=== PATIENT | female | born 1945 | race Caucasian/White ===

== ENCOUNTER 2016-06-23 07:41 | Day surgery (SDC) | payer MEDICARE, BC ==
[~2016-06-23] VITALS: Ht 175.3 cm; Wt 97.5 kg
[~2016-06-23 07:41] MED LIST: ASPI-557 PO; CALC600T2 PO; HYDR-3989 PO; LEVO175T39 PO; LIDOCAINE 1% (10mg/ml) 2ml SDV INJ ONE; LR 1,000 ML IV SCH; MULT-795 PO; ONDA4TAB4 PO; PRAV20TA4 PO; SOTA80TA42 PO
--- OUTSIDE RECORDS SUMMARY | 2016-06-23 07:46 | XMS REPORT | Continuity of Care Document ---
Author Author [facility] Organization [facility] Address Unknown Phone Unavailable Support Name Relationship Address Phone CHENG ROSARIO MD Caregiver [address] [place] [address] Unavailable TARAH CALDERON MD Caregiver [address] [place] [address] Unavailable LUCIEN ZHENG Next Of Kin [address] [place] [address] Insurance Providers Guarantor Douglas Tellez Address [address] [place] [address] Email [email or web address] Policy Number [id number] Subscriber's Name Douglas Tellez Relationship 18 Self Group Number [id number] [facility] Policy Number [id number] Subscriber's Name Douglas Tellez Relationship 18 Self Advance Directives Directive Response Recorded Date/Time Ordered Resuscitation Status Full Code 04/14/16 4:57pm Resuscitation Documents on File No 04/17/16 6:16am DPOA for Healthcare Only No 04/17/16 6:16am Living Will No 04/17/16 6:16am Problems No problem information available. Medications Current Home Medications Medication Dose Units Route Directions Days Qty Instructions Start Date Acetaminophen/Hydrocodone Bitart ([place] 5-325 Tablet) 5-325 Tablet 1-2 Tab Oral Every 4 Hours as needed for Pain 60 Tablet 04/17/16 Aspirin 325 Mg Tablet 325 Mg Oral Twice A Day 28 Tablet 04/17/16 Calcium Carbonate (Caltrate 600) 600 Mg Tablet 600 Mg Oral Twice A Day 05/18/10 Levothyroxine Sodium (Synthroid) 175 Mcg Tablet 175 Mcg Oral Daily 05/18/10 Multivitamins W-Minerals/Lut (Centrum Silver Tablet) 1 Tab Tablet 1 Tab Oral Daily 05/18/10 Ondansetron Hcl (Zofran) 4 Mg Tablet 4 Mg Oral Every 6 Hours as needed for Nausea 10 Tablet 04/17/16 Sotalol Hcl (Sotalol) 80 Mg Tablet 80 Mg Oral Twice A Day Past Home Medications Medication Directions Ordered Status Aspirin (Aspir 81) 81 Mg Tablet.dr, 81 Mg Oral Daily 05/18/10 Discontinued Estradiol (Vivelle-Dot 0.1 Mg) 1 Patch.bwk Patch.tdsw, 1 Patch.bwk Transderm Twice A Week 05/18/10 Discontinued Simvastatin 40 Mg Tablet, 40 Mg Oral Daily 05/18/10 Discontinued Social History Social History Problem Response Recorded Date/Time Onset Date Status Reason for Hospitalization TO HAVE A RIGHT KNEE SCOPE 04/17/2016 8:21am Not Applicable Not Applicable Hx Substance Use No 09/01/2015 10:48am Not Applicable Not Applicable Hx Alcohol Use Y RARE 09/01/2015 10:48am Not Applicable Not Applicable Has the pt used tobacco in the last 12 months No 09/01/2015 10:48am Not Applicable Not Applicable Query Response Start Date Stop Date Smoking Status Never smoker Hospital Discharge Instructions Instructions: Care Instructions: I was in the hospital because (patient own words): TO HAVE A RIGHT KNEE SCOPE Discharge Diet: Resume normal diet as tolerated. Discharge Activity: Please refer to Dr. Rosario's postoperative instructions. Follow Up Appointments: Please refer to Dr. Rosario's postoperative instructions. Pending Lab / Results: No Pending Lab Expected Signs/Symptoms: Please refer to Dr. Rosario's postoperative instructions. Notify Physician If: Please refer to Dr. Rosario's postoperative instructions. During Business Hours:: Please call our office at [phone]. After Business Hours:: Please call the hospital at [phone] and have the physician or the covering physician paged. Pain Management/Treatment: Please refer to Dr. Rosario's postoperative instructions. Wound/Incision Care: Please refer to Dr. Rosario's postoperative instructions. Condition at time of discharge: Good Plan of Care Discharge Date 04/17/16 9:03am Instructions/Education Provided [facility] Marlene Knee Scope Prescriptions See Medication Section Functional Status Query Response Date Recorded Ability to complete ADL's impeded by No change April 17, 2016 6:16am Allergies, Adverse Reactions, Alerts Allergen Type Severity Reaction Status Last Updated Estrogens,Conj.,Synthetic A Allergy Unknown Active 04/17/16 estrogens, conjugated Allergy Unknown Active 04/17/16 Pindolol Allergy Unknown Active 04/17/16 Ampicillin Allergy Unknown Active 04/17/16 Immunizations Query Response on File Recorded Date/Time Hx Influenza Vaccination No 04/17/16 6:05am Hx Pneumococcal Vaccination No 04/17/16 6:05am Hx Influenza Vaccination No 04/17/16 6:05am Vital Signs Acute Vital Signs Vital Response Date/Time Temperature (Fahrenheit) 97.6 deg F (96.8 - 99.1) 04/17/2016 7:59am Temperature (Calculated Celsius) 36.12726 degrees C (36.0 - 37.3) 04/17/2016 7:59am Temperature Source Temporal 04/17/2016 7:59am Pulse Rate (adult) 54 bpm (60 - 100) 04/17/2016 8:50am Respiratory Rate 14 breaths/min (10 - 20) 04/17/2016 8:50am O2 Sat by Pulse Oximetry 96 % (90 - 100) 04/17/2016 8:50am Oxygen Delivery Method Room Air 04/17/2016 8:50am Oxygen Flow Rate 1.50 L/min 04/17/2016 8:20am Blood Pressure 99/54 mm Hg 04/17/2016 8:50am Blood Pressure Source Automatic Cuff 04/17/2016 8:50am Height (Feet) 5 feet 04/17/2016 5:59am Height (Inches) 7.25 inches 04/17/2016 5:59am Weight (Kilograms) 103.100 kg 04/17/2016 5:59am Body Mass Index (BMI) 35.3 04/17/2016 5:59am Results No known relevant diagnostic tests, laboratory data and/or discharge summary. Procedures Procedure Status Date Provider(s) Mri jnt of lwr extre w/o dye Completed 03/16/16 Knee arthroscopy, right Completed 04/17/16 CHENG ROSARIO MD Encounters Encounter Location Arrival/Admit Date Discharge/Depart Date Attending Provider Departed [facility] 04/17/16 5:43am 04/17/16 9: 03am CHENG ROSARIO MD Registered Clinic [facility] 03/16/16 10:32am LJ PALOMO
[2016-06-23 07:47] VITALS: BP 146/95; PULSE 55; RESP 14; TEMP 98.5; O2SAT 98; Ht 175.3 cm; Wt 97.5 kg
--- OUTSIDE RECORDS SUMMARY | 2016-06-23 07:47 | XMS REPORT | Continuity of Care Document ---
Author Author [facility] Address Unknown Phone Unavailable Care Team Providers Care Docket Specialist Name Role Phone Dhiraj Jakob Primary Care Physician [phone] Insurance Providers Payer Name Policy Number Subscriber Name Relationship Medicare [employer] [id number] Douglas Tellez 18 Self / Same As Patient [employer] [facility] Supp [id number] Douglas Tellez 18 Self / Same As Patient Problems Active Problems Medical Problem Onset Date Status Shoulder dislocation Unknown Acute Medications Current Home Medications Medication Dose Units Route Directions Days/Qty Instructions Start Date Levothyroxine Sodium (Synthroid) 175 Mcg 175 Mcg ORAL Daily 07/08/15 Sotalol Hcl 80 Mg 80 Mg ORAL Twice A Day 07/08/15 Acetaminophen/Hydrocodone Bitart 1 Each 1-2 Tab ORAL Every 6 Hours as needed for Pain 20 07/08/15 Social History No social history. Hospital Discharge Instructions No hospital discharge instructions. Plan of Care Prescriptions See Medication Section Functional Status No functional status results. Allergies, Adverse Reactions, Alerts Allergen Type Severity Reaction Status Last Updated Ampicillin Allergy Unknown UNKNOWN Active 07/08/15 Immunizations No immunization records. Vital Signs No known vital signs results. Results No known relevant diagnostic tests, laboratory data and/or discharge summary. Procedures No known history of procedures. Encounters Encounter Location Arrival/Admit Date Discharge/Depart Date Attending Provider Discharged [facility] 05/01/16 8:15am 05/10/16 12:00pm Israel Rosario
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
--- NOTE | 2016-06-23 09:23 | ANESPREOP ---
Anesthesia Record Date and Time DATE: 06/23/16 TIME: 09:22 Pre-Op Diagnosis personal history colon polyps Proposed Surgical Procedure COLONOSCOPY NPO since: 0500 Allergies: Coded Allergies: Estrogens,Conj.,Synthetic A (Verified Allergy, Unknown, 06/23/16) ampicillin (Verified Allergy, Unknown, 06/23/16) estrogens, conjugated (Verified Allergy, Unknown, 06/23/16) pindolol (Verified Allergy, Unknown, 06/23/16) Ht/Wt/BMI Height: 5 ' 9.00 " Weight: 97.500 kg BMI: 31.7 kg/m2 Vital Signs Date Time Temp Pulse Resp B/P Pulse Ox O2 Delivery O2 Flow Rate FiO2 06/23/16 07:47 98.5 55 14 146/95 98 Room Air Medications Inpatient Medications Current Medications Medications (Trade) Dose Ordered Sig/Mera Start Time Stop Time Status Last Admin Dose Admin Lactated Ringer's (Lactated Ringers) 1,000 ml @ 30 mls/hr Q24H 06/23/16 07:00 06/23/16 08:24 30 MLS/HR Aspirin (Aspir 81) 81 Mg Tablet.dr, 1 TAB PO DAILY, (Reported) Last Taken: on 06/08/16 Calcium Carbonate (Caltrate 600) 600 Mg Tablet, 600 MG PO BID, (Reported) Last Taken: on 06/21/16 2300 Hydrocodone/Apap ([place] 5-325 Tablet) 5-325 Tablet, 1-2 TAB PO Q4H PRN for PAIN Last Taken: on Unknown Date & Time Levothyroxine Sodium (Synthroid) 175 Mcg Tablet, 175 MCG PO DAILY, (Reported) Last Taken: on 06/23/16 0620 Multivitamins W-Minerals/Lut (Centrum Silver Tablet) 1 Tab Tablet, 1 TAB PO DAILY, (Reported) Last Taken: on 06/16/16 Pravastatin Sodium (Pravastatin Sodium) 20 Mg Tablet, 1 TAB PO HS, (Reported) Last Taken: on 06/22/16 2300 Sotalol Hcl (Sotalol) 80 Mg Tablet, 80 MG PO BID, (Reported) Last Taken: on 06/23/16 0620 Currently on Beta Ba: Yes Beta Ba Last Taken: sotalol 06/23/16 at 0620 Medical/Surgical History Anesthesia PMH: Reports: *Hypertension, Arthritis (OA -PER H&P), Cardiac Arrythmia (Hx Of PVC's, sees Dr. Alvarez every 6 months , no history of CA, chest pain ), Hyperlipidemia, Thyroid Disease (HYPO/GOITER PER H&P), Denies: * Angina, *Diabetes, *CA, Anesthesia Reactions (NO AIRWAY ISSUES KNOWN), CHF, Cancer, Clotting Problems, Deep Vein Thrombosis, Glaucoma, Hiatal Hernia, Malignant Hyperthermia, Reflux, Sleep Apnea Smoking Status: Never smoker Has pt. smoked today?: No Use Chewing Tobacco?: No Second Hand Exposure: No Substance Use Type: does not use Alcohol Intake: none HX of Last Menstrual Period: HYST Past Surgical History Orthopedic Surgeries: Yes - R ROTATOR CUFF REPAIR, R KNEE SCOPE Abdominal Surgeries: Genitourinary Surgeries: Cardiac Surgeries: Endocrine Surgeries: Yes - THYROIDECTOMY PER H&P Reproductive Surgeries: Yes - TUBAL,HYST PER H&P Neurological Surgeries: Ear Surgeries: Nose Surgeries: Throat Surgeries: Yes - EGD Other Surgeries: Yes - aydin cataracts, l knee scope Anesthesia Adverse Reactions: FOUND none Family Hx of Anesthesia Advers: none Hx of Motion Sickness: No Pertinent Findings EKG Rhythm: Sinus Rhythm, Bundle Branch Block (right) Physical Exam Respiratory: Lungs clear Cardiovascular: FOUND Regular rate, rhythm, FOUND No murmur Airway Assessment Mallampati Score: I TMD: 3 Fingerbreadths Neck Extension: Good Teeth: Chipped Teeth/Crowns Overall Assessment: No Airway Concerns ASA: 2 Plan Anesthesia Plan: TIVA Discussion Discussed risks/options/alternatives of anesthesia and questions answered. Patient consents. Nursing pain assessment noted. Present: Spouse Attestation Statement Prior to the delivery of any anesthetic medication, I examined the patient, developed the plan, obtained the patient's consent and discussed the risk and benefits of the procedure with the patient/guardian. HERNAN BEY CRNA June 23, 2016 09:23
[2016-06-23] MEDS ORDERED: PROPOFOL 500mg 50 ML IV ONE (09:44)
[2016-06-23 10:12] VITALS: BP 78/40; PULSE 55; RESP 16; TEMP 99.7; O2SAT 99
[2016-06-23 10:27] VITALS: BP 82/48; PULSE 52; RESP 14; O2SAT 99
[2016-06-23 10:43] VITALS: BP 80/53; PULSE 47; RESP 14; O2SAT 99
--- NOTE | 2016-06-23 10:50 | ANESPO ---
Post-Op Note Date 06/23/16 Time: 10:50 Status Pt Participated in Evaluation: Pt participated in person Vital Signs Date Time Temp Pulse Resp B/P Pulse Ox O2 Delivery O2 Flow Rate FiO2 06/23/16 10:43 47 14 80/53 99 Room Air 06/23/16 10:12 99.7 5.00 Respiratory Function: Airway patent, Regular respirations Cardiovascular Function: Regular pulse Telemetry Pattern: SR Mental Status: Alert/oriented Pain Level Intensity: 0 Hydration: Taking po fluids Complications during Recovery None apparent Follow-Up Instructions Instructions Per Surgeon GINA ELAM CRNA June 23, 2016 10:50
--- NOTE | 2016-06-23 13:56 | OPNOTEF ---
DATE OF PROCEDURE: 06/23/2016 SURGEON Zachariah Olguin MD PREOPERATIVE DIAGNOSIS Personal history for adenomatous colon polyps. POSTOPERATIVE DIAGNOSIS Personal history for adenomatous colon polyps, sigmoid diverticulosis. PROCEDURE Colonoscopy. ANESTHESIA TIVA BRIEF HISTORY/INDICTIONS Mrs. Casiano is a 70-year-old female who presents today to [facility] to undergo a colonoscopy as a result of her prior history for adenomatous colon polyps in the past. For completeness please refer to notes included in the patient's chart. FINDINGS Upon colonoscopy there was no evidence for angiodysplastic lesions, polyps or mariaa allergies. The patient was found to have a moderate number of diverticula within the sigmoid colon region. DESCRIPTION OF PROCEDURE After informed consent was obtained, the patient was brought to the endoscopy suite and placed on the table in left lateral decubitus position. The patient subsequently underwent total intravenous anesthesia by the nurse gem setter per my request. Formal time-out was then completed. Next, digital rectal examination was performed. Normal sphincter tone. No rectal masses were appreciated. Olympus colonoscope was inserted in the anus and advanced with the lumen of the colon under direct visualization at all times till the cecum was ascertained. Triangulation of taenia coli, ileocecal valve and appendiceal lumen were all visualized. Scope was slowly withdrawn, again maintaining visualization of the lumen at all times. The entire colon was without evidence for angiodysplastic lesions, polyps or mariaa allergies. The patient was found to have a moderate number of diverticula within her sigmoid colon region. Once the colonoscope was withdrawn back to the rectal vault, a J-maneuver was performed. No worrisome perianal pathology was noted. The scope was allowed to straighten and withdrawn through the anal verge. The patient tolerated the procedure without difficulty and was sent back to the preop area in stable condition. Secondary to the absence of findings upon this colonoscopy and the fact that it has now been 10 years since she has had adenomatous colon polyps, I do believe that she could be returned back to the general guidelines and a repeat colonoscopy would therefore be recommended at a 10-year interval unless specific indication should arise in the interim. TAZ
== END 2016-06-23 10:57 | disposition home or self-care (01) ==
LOC: NSC 07:41
PROVIDERS: ATTEND Surgery
DX: Z12.11 Encounter for screening for malignant neoplasm of colon (principal); Z86.010 Personal history of colon polyps; K57.30 Diverticulosis of large intestine without perforation or abscess without bleeding; E78.00 Pure hypercholesterolemia, unspecified; E89.0 Postprocedural hypothyroidism; E66.9 Obesity, unspecified; Z68.31 Body mass index [BMI] 31.0-31.9, adult; Z79.82 Long term (current) use of aspirin; Z79.890 Hormone replacement therapy; Z79.899 Other long term (current) drug therapy
CPT/HCPCS: G0105; J7120